=== PATIENT | female | born 1975 | race Two or more races ===

== ENCOUNTER 2017-04-01 12:48 | Emergency (ER) | payer SELFPAY ==
[~2017-04-01] VITALS: Ht 170.2 cm; Wt 100.7 kg
[2017-04-01 16:02] VITALS: BP 155/98
== END 2017-04-01 16:29 | disposition home or self-care (01) ==
LOC: ER 12:55
DX: O20.0 Threatened abortion (principal); Z3A.00 Weeks of gestation of pregnancy not specified; Z98.51 Tubal ligation status; Z88.6 Allergy status to analgesic agent
CPT/HCPCS: 36415; 76801; 76817; 84702